=== PATIENT | female | born 1990 | race Caucasian/White ===

== ENCOUNTER 2017-02-08 01:06 | Emergency (ER) | payer OTHER ==
[2017-02-08] MEDS ORDERED: AMOXicillin 250 MG CAP ONE (01:31)
[2017-02-08] MEDS ORDERED: Ketorolac Tromethamine 60 MG/2 ML VIAL ONE (01:31)
[2017-02-08] MEDS ORDERED: HYDROcodone/Acetaminophen 5/325 mg Tablet ONE (01:54)
== END 2017-02-08 01:54 | disposition home or self-care (01) ==
LOC: MADERS 01:06
DX: K02.9 Dental caries, unspecified (principal); F32.9 Major depressive disorder, single episode, unspecified; F17.210 Nicotine dependence, cigarettes, uncomplicated
CPT/HCPCS: 96372; J1885

== ENCOUNTER 2017-03-23 08:02 | Emergency (ER) | payer OTHER ==
[2017-03-23 08:40] LABS: Bilirubin Negative (Negative); Blood, Urine Negative (Negative); Clarity Hazy (Clear); Glucose, Urine (Dipstick) Negative (Negative); Leukocyte Moderate (Negative); Nitrite Negative (Negative); Protein, Urine (Dipstick) Negative (Neg-Trace); Specific Gravity, Urine 1.015 (1.005-1.030); Urobilinogen 0.2 mg/dL (0.2-1.0)
[2017-03-23 08:41] LABS: Pregnancy Test - Urine (BHCG) POSITIVE (NEGATIVE); Pregu Control Bar Appear? YES (CONTROL BAR); Specific Gravity 1.015 (1.002-1.036)
[2017-03-23 08:42] LABS: RBC/HPF 0-3 HPF (0-3)
[2017-03-23 08:43] LABS: Bacteria/HPF 3+ HPF (None Seen)
[2017-03-23 09:16] LABS: #Basophils 0.1 thou/uL (0.0-0.2); #Eosinphils 0.3 thou/uL (0.0-0.7); #Lymphocytes 2.2 thou/uL (1.20-3.40); #Monocytes 0.9 thou/uL (0.11-0.59); #Neutrophils 15.2 thou/uL (1.40-6.50); %Basophils 0.5 % (0.0-1.0); %Eosinophils 1.8 % (0.0-10.0); %Lymphocytes 11.9 % (21.0-51.0); %Monocytes 4.9 % (0.0-10.0); %Neutrophils 80.8 % (42.0-75.0); Hemoglobin 13.9 g/dL (12.0-16.0); Mean Corpuscular Hemoglobin 31.3 pg (27.0-31.0); Mean Corpuscular Volume 89.4 fl (81.0-99.0); Mean Platelet Volume 7.8 fL (7.4-10.4); Platelet Count 257 thou/uL (130-400); RBC Distribution Width 11.8 % (11.5-14.5); Red Blood Cell (RBC) Count 4.44 mill/uL (4.20-5.40); White Blood Cell (WBC) Count 18.8 thou/uL (4.8-10.8)
[2017-03-23 09:27] LABS: ALT (SGPT) 9 U/L (0-55); AST (SGOT) 10 U/L (5-34); Albumin 3.3 g/dL (3.5-5.0); Alkaline Phosphatase 74 U/L (40-150); Anion Gap 14 mmol/L (10-20); BUN (Urea Nitrogen) 4 mg/dL (7.0-18.7); Bilirubin, Total Less than 0.3 mg/dL (0.2-1.2); Calc. Creatinine Clearance 0 mL/min (70-130); Calcium 8.4 mg/dL (7.8-10.44); Chloride 106 mmol/L (98-107); Estimated GFR-MDRD Greater than 90; Globulin 3.1 g/dL (2.4-3.5); Glucose 88 mg/dL (70-105); Potassium 3.8 mmol/L (3.5-5.1); Protein, Total 6.4 g/dL (6.0-8.3); Sodium 138 mmol/L (136-145); Uric Acid 3.9 mg/dL (2.6-6.0)
[2017-03-23 09:37] LABS: Carbon Dioxide 22 mmol/L (22-29)
== END 2017-03-23 09:55 | disposition home or self-care (01) ==
LOC: MADERS 08:02
DX: O26.852 Spotting complicating pregnancy, second trimester (principal); O99.332 Smoking (tobacco) complicating pregnancy, second trimester; F17.210 Nicotine dependence, cigarettes, uncomplicated; Z3A.26 26 weeks gestation of pregnancy
CPT/HCPCS: 36415; 80053; 81003; 81015; 81025; 84550; 85025; 87086

== ENCOUNTER 2017-07-04 01:24 | Emergency (ER) | payer OTHER ==
[2017-07-04 03:00] LABS: Actual Bicarbonate (HCO3v) 24 mEq/L (22-26); Analyzer IN Cardio OR; Base Excess 1.2 mEq/L (0 (+/- 2.5))
[2017-07-04] MEDS ORDERED: Sodium Chloride 0.9% 1,000 ML BAG ONE (08:59)
== END 2017-07-04 01:37 | disposition short-term general hospital (02) ==
LOC: MADERS 01:24
DX: O60.03 Preterm labor without delivery, third trimester (principal); O99.343 Other mental disorders complicating pregnancy, third trimester; F32.9 Major depressive disorder, single episode, unspecified; O99.333 Smoking (tobacco) complicating pregnancy, third trimester; F17.210 Nicotine dependence, cigarettes, uncomplicated
CPT/HCPCS: 82805; 99284; J7050

== ENCOUNTER 2017-07-10 22:26 | Emergency (ER) | payer OTHER ==
[2017-07-10] MEDS ORDERED: Diazepam 5 MG TAB ONE (23:11)
== END 2017-07-10 23:18 | disposition home or self-care (01) ==
LOC: MADERS 22:26
DX: O90.6 Postpartum mood disturbance (principal); O99.345 Other mental disorders complicating the puerperium; F30.9 Manic episode, unspecified; F17.210 Nicotine dependence, cigarettes, uncomplicated
CPT/HCPCS: 99283

== ENCOUNTER 2017-07-27 11:01 | Emergency (ER) | payer OTHER ==
[2017-07-27] MEDS ORDERED: Ketorolac Tromethamine 60 MG/2 ML VIAL ONE (11:46)
[2017-07-27 12:25] LABS: Clarity Cloudy (Clear); Leukocyte Moderate (Negative); Nitrite Negative (Negative); Protein, Urine (Dipstick) 100 mg/dL (Neg-Trace); pH, Urine 8.5 (5.0-9.0)
[2017-07-27 12:26] LABS: Bilirubin Negative (Negative); Blood, Urine Moderate (Negative); Glucose, Urine (Dipstick) Negative (Negative); Urobilinogen 0.2 mg/dL (0.2-1.0)
[2017-07-27 12:34] LABS: Bacteria/HPF 2+ HPF (None Seen)
[2017-07-27 12:38] LABS: Pregnancy Test - Urine (BHCG) Negative (Negative); Pregu Control Background? CLEAR/WHITE (CLR/WHITE); Pregu Control Bar Appear? YES (CONTROL BAR)
[2017-07-27] MEDS ORDERED: Sulfameth/Trimethoprim DS 800-160mg TAB ONE (12:56)
[2017-07-27] MEDS ORDERED: Phenazopyridine HCl 97.5 MG TABLET ONE (12:56)
== END 2017-07-27 12:56 | disposition home or self-care (01) ==
LOC: MADERS 11:01
DX: N39.0 Urinary tract infection, site not specified (principal); F33.9 Major depressive disorder, recurrent, unspecified; F17.210 Nicotine dependence, cigarettes, uncomplicated
CPT/HCPCS: 81003; 81015; 81025; 96372; J1885

== ENCOUNTER 2017-08-21 11:12 | Emergency (ER) | payer OTHER ==
[2017-08-21] MEDS ORDERED: HYDROcodone/Acetaminophen 10/325 mg Tablet ONE (11:41)
[2017-08-21] MEDS ORDERED: Phenergan/Codeine 10-6.25mg/5ml UDCUP ONE (11:41)
[2017-08-21] MEDS ORDERED: Naproxen 500 MG TAB ONE (11:42)
[2017-08-21] MEDS ORDERED: AMOXicillin 250 MG CAP ONE (11:42)
[2017-08-21] MEDS ORDERED: predniSONE 20 MG TAB ONE (12:51)
--- NOTE | 2017-08-21 19:35 | RAD ---
RADIOGRAPH CHEST 1 VIEW: 08/21/17 HISTORY: 27-year-old female with acute chest pain. FINDINGS: There are no air space densities, pulmonary edema, pneumothorax, or cardiomegaly. The lateral costo phrenic angles are sharp. IMPRESSION: No acute cardiopulmonary findings. leif [] POS: [facility]
== END 2017-08-21 12:50 | disposition home or self-care (01) ==
LOC: MADERS 11:12
DX: J20.9 Acute bronchitis, unspecified (principal); F17.210 Nicotine dependence, cigarettes, uncomplicated; F33.9 Major depressive disorder, recurrent, unspecified
CPT/HCPCS: 71010; J7506

== ENCOUNTER 2017-09-09 17:25 | Emergency (ER) | payer OTHER | END 2017-09-09 19:11 | disposition left against medical advice (07) | LOC: MADERS 17:25 | DX: Z53.21 Procedure and treatment not carried out due to patient leaving prior to being seen by health care provider (principal) ==

== ENCOUNTER 2017-10-26 18:34 | Emergency (ER) | payer OTHER ==
[2017-10-26] MEDS ORDERED: cefTRIAXone\\ROCEPHIN 250 MG VIAL ONE (19:50)
[2017-10-26] MEDS ORDERED: metroNIDAZOLE 250 MG TAB ONE (19:50)
[2017-10-26] MEDS ORDERED: Azithromycin 250 MG TAB ONE (19:50)
[2017-10-26 20:08] LABS: Wet Prep Trichomonas Trichomonas PRESENT (None Seen)
[2017-10-28 01:39] LABS: GC by PCR Not Detected (NotDetected)
[2017-10-28 11:42] LABS: Chlamydia by PCR DETECTED (NotDetected)
== END 2017-10-26 20:00 | disposition home or self-care (01) ==
LOC: MADERS 18:34
DX: B37.3 Candidiasis of vulva and vagina (principal); Z20.818 Contact with and (suspected) exposure to other bacterial communicable diseases; Z20.7 Contact with and (suspected) exposure to pediculosis, acariasis and other infestations; F41.9 Anxiety disorder, unspecified; F32.9 Major depressive disorder, single episode, unspecified; F17.210 Nicotine dependence, cigarettes, uncomplicated
CPT/HCPCS: 87210; 87220; 87491; 87591; 96372; J0696; J2001

== ENCOUNTER 2017-11-05 01:06 | Emergency (ER) | payer OTHER | END 2017-11-05 01:59 | disposition home or self-care (01) | LOC: MADERS 01:06 | DX: F32.9 Major depressive disorder, single episode, unspecified (principal); F41.9 Anxiety disorder, unspecified; F17.210 Nicotine dependence, cigarettes, uncomplicated | CPT/HCPCS: 99283 ==

== ENCOUNTER 2017-12-08 03:15 | Emergency (ER) | payer OTHER | END 2017-12-08 03:57 | disposition home or self-care (01) | LOC: MADERS 03:15 | DX: S50.812A Abrasion of left forearm, initial encounter (principal); F43.20 Adjustment disorder, unspecified; F33.9 Major depressive disorder, recurrent, unspecified; F17.210 Nicotine dependence, cigarettes, uncomplicated; X58.XXXA Exposure to other specified factors, initial encounter | CPT/HCPCS: 99283 ==

== ENCOUNTER 2018-01-08 02:47 | Emergency (ER) | payer OTHER ==
[2018-01-08] MEDS ORDERED: Amoxicillin/Potassium Clav 875 MG TAB ONE (03:17)
[2018-01-08] MEDS ORDERED: Naproxen 500 MG TAB ONE (03:23)
== END 2018-01-08 03:39 | disposition home or self-care (01) ==
LOC: MADERS 02:47
DX: T63.301A Toxic effect of unspecified spider venom, accidental (unintentional), initial encounter (principal); J20.9 Acute bronchitis, unspecified; J01.90 Acute sinusitis, unspecified; F41.9 Anxiety disorder, unspecified; F32.9 Major depressive disorder, single episode, unspecified; F17.210 Nicotine dependence, cigarettes, uncomplicated
CPT/HCPCS: 96372; J1040

== ENCOUNTER 2018-01-10 03:16 | Emergency (ER) | payer OTHER ==
[2018-01-10] MEDS ORDERED: Ketorolac Tromethamine 60 MG/2 ML VIAL ONE (05:00)
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
== END 2018-01-10 05:20 | disposition home or self-care (01) ==
LOC: MADERS 03:16
DX: T63.301A Toxic effect of unspecified spider venom, accidental (unintentional), initial encounter (principal); S60.222A Contusion of left hand, initial encounter; F41.1 Generalized anxiety disorder; F17.210 Nicotine dependence, cigarettes, uncomplicated; Y04.0XXA Assault by unarmed brawl or fight, initial encounter
CPT/HCPCS: 96372; J1885

== ENCOUNTER 2018-03-02 20:14 | Emergency (ER) | payer OTHER ==
[2018-03-02 20:46] LABS: Specific Gravity 1.022 (1.002-1.036)
[2018-03-02 20:47] LABS: Pregnancy Test - Urine (BHCG) Negative (Negative); Pregu Control Bar Appear? YES (CONTROL BAR)
[2018-03-02 20:48] LABS: Pregu Control Background? CLEAR/WHITE (CLR/WHITE)
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
[2018-03-02] MEDS ORDERED: HYDROcodone/Acetaminophen 5/325 mg Tablet ONE (22:03)
[2018-03-02] MEDS ORDERED: Acetaminophen 325 MG TAB ONE (22:03)
[2018-03-02] MEDS ORDERED: Ibuprofen 600 MG TAB ONE (22:03)
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
[2018-03-02] MEDS ORDERED: Ibuprofen 800 MG TAB ONE (22:36)
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
== END 2018-03-02 22:08 | disposition home or self-care (01) ==
LOC: MADERS 20:14
DX: S50.12XA Contusion of left forearm, initial encounter (principal); T14.8XXA Other injury of unspecified body region, initial encounter; F32.9 Major depressive disorder, single episode, unspecified; F41.9 Anxiety disorder, unspecified; F17.210 Nicotine dependence, cigarettes, uncomplicated; V43.62XA Car passenger injured in collision with other type car in traffic accident, initial encounter
CPT/HCPCS: 70450; 72125; 81025

== ENCOUNTER 2018-04-08 12:16 | Emergency (ER) | payer OTHER ==
--- NOTE | 2018-04-08 14:09 | RAD ---
FOUR VIEWS LEFT ELBOW: Comparison: None. History: Left elbow pain. FINDINGS: Four views of the left elbow shows no evidence of acute fracture or dislocation. No elbow effusion is seen. No significant degenerative changes are present. IMPRESSION: No evidence of acute osseous abnormality. POS: [facility]
== END 2018-04-08 14:00 | disposition home or self-care (01) ==
LOC: MADERS 12:16
DX: S50.02XA Contusion of left elbow, initial encounter (principal); F32.9 Major depressive disorder, single episode, unspecified; F17.210 Nicotine dependence, cigarettes, uncomplicated; W18.30XA Fall on same level, unspecified, initial encounter

== ENCOUNTER 2018-05-19 11:20 | Emergency (ER) | payer OTHER ==
[2018-05-19] MEDS ORDERED: Bupivacaine PF 0.5% 30 ML VIAL ONE (12:00)
[2018-05-19] MEDS ORDERED: Lidocaine 1% 20 ML MDV ONE (12:00)
[2018-05-19] MEDS ORDERED: Ketorolac Tromethamine 30 MG/ML VIAL ONE (12:05)
== END 2018-05-19 12:24 | disposition home or self-care (01) ==
LOC: MADERS 11:20
DX: K02.9 Dental caries, unspecified (principal); F41.9 Anxiety disorder, unspecified; F32.9 Major depressive disorder, single episode, unspecified; F17.210 Nicotine dependence, cigarettes, uncomplicated
CPT/HCPCS: 64400; 96372; J1885; J2001; S0020

== ENCOUNTER 2018-07-25 03:04 | Emergency (ER) | payer SELFPAY ==
[2018-07-25] MEDS ORDERED: Phenazopyridine HCl 97.5 MG TABLET ONE (03:29)
[2018-07-25 03:38] LABS: Bilirubin Negative (Negative); Blood, Urine Trace (Negative); Clarity Clear (Clear); Glucose, Urine (Dipstick) Negative (Negative); Leukocyte Small (Negative); Nitrite Negative (Negative); Protein, Urine (Dipstick) 30 mg/dL (Neg-Trace); Urobilinogen 0.2 mg/dL (0.2-1.0); pH, Urine 5.5 (5.0-9.0)
[2018-07-25 03:43] LABS: Bacteria/HPF 1+ HPF (None Seen)
[2018-07-25 03:44] LABS: Pregnancy Test - Urine (BHCG) Negative (Negative); Pregu Control Background? CLEAR/WHITE (CLR/WHITE); Pregu Control Bar Appear? YES (CONTROL BAR)
== END 2018-07-25 03:55 | disposition home or self-care (01) ==
LOC: MADERS 03:04
DX: N39.0 Urinary tract infection, site not specified (principal); F41.9 Anxiety disorder, unspecified; F32.9 Major depressive disorder, single episode, unspecified; F17.210 Nicotine dependence, cigarettes, uncomplicated
CPT/HCPCS: 81003; 81015; 81025; 87086; 99283

== ENCOUNTER 2018-08-22 13:01 | Emergency (ER) | payer SELFPAY ==
[2018-08-22] MEDS ORDERED: Dexamethasone 4 MG TAB ONE (13:20)
[2018-08-22] MEDS ORDERED: Benzonatate 100 MG CAP ONE (13:20)
== END 2018-08-22 13:31 | disposition home or self-care (01) ==
LOC: MADERS 13:01
DX: R21 Rash and other nonspecific skin eruption (principal); F41.9 Anxiety disorder, unspecified; F32.9 Major depressive disorder, single episode, unspecified; F17.210 Nicotine dependence, cigarettes, uncomplicated
CPT/HCPCS: 99282; J8540

== ENCOUNTER 2019-03-18 16:16 | Emergency (ER) | payer SELFPAY | END 2019-03-18 16:40 | disposition home or self-care (01) | LOC: MADERS 16:16 | DX: S70.362A Insect bite (nonvenomous), left thigh, initial encounter (principal); F41.9 Anxiety disorder, unspecified; F31.9 Bipolar disorder, unspecified; W57.XXXA Bitten or stung by nonvenomous insect and other nonvenomous arthropods, initial encounter | CPT/HCPCS: 99406 ==